=== PATIENT | male | born 1995 | race Caucasian/White ===

== ENCOUNTER 2018-01-20 18:35 | Emergency (ER) | END 2018-01-20 22:32 | disposition home or self-care (01) ==

== ENCOUNTER 2019-02-06 14:19 | Emergency (ER) | payer MEDICAID, OTHER ==
[~2019-02-06] VITALS: Ht 177.8 cm; Wt 101.4 kg
[~2019-02-06 14:19] MED LIST: ACET500C5 PO; AUG875 PO; HYDR-3498 PO
[2019-02-06 15:09] VITALS: BP 100/61; PULSE 69; RESP 18; Ht 177.8 cm; Wt 101.4 kg
== END 2019-02-06 16:29 | disposition home or self-care (01) ==
LOC: FTE 14:19
DX: S31.119A Laceration without foreign body of abdominal wall, unspecified quadrant without penetration into peritoneal cavity, initial encounter (principal); W26.0XXA Contact with knife, initial encounter; Y92.9 Unspecified place or not applicable